=== PATIENT | female | born 1965 | race Caucasian/White ===

== ENCOUNTER → 2017-05-18 | Outpatient (CLI) | payer BC ==
[~2017-05-18] MED LIST: ASPIRIN E.C. 8181 MG PO; TOPROL XL100 MG PO; ZOLOFT 50MG50 MG PO
== END ==
LOC: MC.RAD 13:17
DX: Z12.31 Encounter for screening mammogram for malignant neoplasm of breast (principal)

== ENCOUNTER → 2018-06-04 | Outpatient (CLI) | payer BC | LOC: MC.RAD 11:20 | DX: Z12.31 Encounter for screening mammogram for malignant neoplasm of breast (principal) ==

== ENCOUNTER → 2019-06-18 | Outpatient (CLI) | payer OTHER | LOC: MC.RAD 14:01 | DX: Z12.31 Encounter for screening mammogram for malignant neoplasm of breast (principal) ==

== ENCOUNTER → 2020-06-23 | Outpatient (CLI) | payer OTHER | LOC: MC.RAD 11:45 | DX: Z12.31 Encounter for screening mammogram for malignant neoplasm of breast (principal) ==

== ENCOUNTER → 2021-08-03 | Outpatient (CLI) | payer OTHER | LOC: MC.RAD 15:01 | DX: Z12.31 Encounter for screening mammogram for malignant neoplasm of breast (principal) ==

== ENCOUNTER 2022-01-18 08:17 | Day surgery (SDC) | payer OTHER ==
[2022-01-18] VITALS (81 sets, daily range): BP systolic 117–169; BP diastolic 54–85; PULSE 66–85; TEMP 96.7–98.7; O2SAT 93–100
[~2022-01-18] VITALS: Ht 160 cm; Wt 111.3 kg
[2022-01-18] MEDS ORDERED: ZESTRIL40 MG PO (08:39)
[2022-01-18] MEDS ORDERED: TOPROL XL 50MG50 MG PO (08:41)
[2022-01-18 09:05] LABS: HEMATOCRIT 43.5 % (37.0-47.0); HEMOGLOBIN 14.3 g/dl (12.5-16.0); MEAN CELL VOLUME 89 fl (80.0-100.0); MEAN CORPUSCULAR HEMOGLOBIN 29 pg (27-31); MEAN CORPUSCULAR HGB CONC 33 g/dl (33.0-37.0); MEAN PLATELET VOLUME 10.2 fl (7.4-10.4); PLATELET COUNT 224 K/mm3 (130-400); RED BLOOD COUNT 4.89 M/mm3 (4.10-5.30); REDCELL DISTRIBUTION WIDTH-CV 12.8 % (11.5-14.5)
[2022-01-18 09:14] LABS: PARTIAL THROMBOPLASTIN TIME 24.9 SECONDS (26.0-37.0)
[2022-01-18 09:18] LABS: CALCIUM 9.3 mg/dL (8.4-10.2); CREATININE, serum 0.88 mg/dL (0.57-1.11); POTASSIUM 4.9 mmol/L (3.5-4.5)
--- NOTE | 2022-01-18 12:05 | NUR ---
PATIENT ALERT AND ORIENTED.NO REPORTS OF CHEST PAIN.FAMILY IN ROOM. PATIENT VERBALIZES UNDERSTANDING PROCEDURE. SEE MERGE FOR CATH DETAILS MONITORING AND MEDICATION ADMINISTRATION
--- NOTE | 2022-01-18 12:29 | NUR ---
PT arrived on medical bed to ICU05. PT alert and orientated to room. VSS. all questions answered. Intake assessment complete.
--- NOTE | 2022-01-18 17:40 | NUR ---
ASSUMED CARE OF PATIENT AT 1645. TR BAND REMOVED DURING BEDSIDE SHIFT REPORT. NO COMPLAINTS OF PAIN. RADIAL SITE SOFT, PULSES PALPABLE, NO BLEEDING OR HEMATOMA. PATIENT EATING AND TOLERATING FOOD WELL. VITALS STABLE. FLUIDS RUNNING @100MLS/HR. NO SIGNFICANT EVENTS UNDER MY CARE.
--- NOTE | 2022-01-18 21:36 | NUR ---
CONTINUING TO MONITOR PATIENT R RADIAL INCISIONAL SITE POST CATH NO S/S OF HEMATOMA NOTED AT THIS TIME. PLACED SPLINT TO LIMIT ROM TO ASSIST WITH POST OP CARE PATIENT REQUESTING WHILE SLEEPING. WILL CONTINUE TO MONITOR FOR ANY CHANGES PATIENT REMAINS SINUS ON TELE.
[2022-01-19 00:13] VITALS: BP 117/54; PULSE 76; TEMP 98.1
--- NOTE | 2022-01-19 00:13 | NUR ---
NO S/S OF HEMATOMA NOTED SPLINT IN PLACE WHILE PATIENT IS SLEEPING. NO PAIN NOTED SENSATION PRESENT CAP REFILL 2SEC WILL CONTINUE TO MONITOR.
[2022-01-19 00:29] VITALS: BP 139/67; PULSE 79; TEMP 98.3
[2022-01-19 04:20] VITALS: BP 146/76; PULSE 74; TEMP 97.8
[2022-01-19 05:36] VITALS: BP 146/76; PULSE 74; TEMP 97.8
--- NOTE | 2022-01-19 05:37 | NUR ---
NO S/S OF HEMATOMA NOTED TO R RADIAL AREA PATIENT DOING WELL THROUGHOUT THE NIGHT NO C/O PAIN OR DISCOMFORT POSSIBLE DISCHARGE THIS MORNING. WILL CONTINUE TO MONITOR.
[2022-01-19 06:17] LABS: BASO % 0.5 % (0.0-2.0); EOS # 0.2 K/mm3 (0.0-0.7); EOS % 2.7 % (0.0-4.0); GRAN # 4.2 K/mm3 (1.4-6.5); GRAN % 63.4 % (42.2-75.2); HEMATOCRIT 38.7 % (37.0-47.0); HEMOGLOBIN 13.1 g/dl (12.5-16.0); LYMPH # 1.6 K/mm3 (1.2-3.4); LYMPH % 24.4 % (20.0-51.0); MEAN CELL VOLUME 88 fl (80.0-100.0); MEAN CORPUSCULAR HEMOGLOBIN 30 pg (27-31); MEAN CORPUSCULAR HGB CONC 34 g/dl (33.0-37.0); MEAN PLATELET VOLUME 10.2 fl (7.4-10.4); MONO # 0.6 K/mm3 (0.1-0.6); MONO % 8.5 % (1.7-9.3); PLATELET COUNT 206 K/mm3 (130-400); RED BLOOD COUNT 4.42 M/mm3 (4.10-5.30); REDCELL DISTRIBUTION WIDTH-CV 12.6 % (11.5-14.5)
[2022-01-19 06:34] LABS: CALCIUM 8.9 mg/dL (8.4-10.2); CREATININE, serum 0.79 mg/dL (0.57-1.11); POTASSIUM 3.9 mmol/L (3.5-4.5)
[2022-01-19 07:15] VITALS: BP 144/72; PULSE 71; TEMP 98
--- NOTE | 2022-01-19 08:53 | NUR ---
Patient laying in bed upon entering the room. Denies any chest pain, SOB, or dizziness. Radial site is soft w/ no signs of hematoma. Patient denies any pain at the site. Morning medications administered w/ the exception of the nitro patch, patient states it gives her a headache.
--- NOTE | 2022-01-19 10:26 | NUR ---
Staff reviewed Phase 1 cardiac rehab education with patient- cath site care, monitoring for infection and when to call MD. Staff also reviewed CVD risk factors and ways to modify. Patient verbalized understanding. Referral sent to [facility] with patient's permission.
--- NOTE | 2022-01-19 11:10 | NUR ---
RAJ met with the patient to discuss discharge plan. The patient lives in [place] with her , Semaj (ph#[phone]). She reports independence with ADLs and does not have any DME. The patient's PCP is Dr. Kennedy Lopez and she receives her medications from [facility]. The patient does not have a DPOA-HC, but she was interested in obtaining a form. RAJ provided. The patient plans on returning home with her upon discharge. No additional needs at this time. *Discharge plan: home with *
[2022-01-19 11:24] VITALS: BP 141/64; PULSE 74; TEMP 97.9
[2022-01-19] MEDS ORDERED: BRILINTA90 MG PO (12:01)
[2022-01-19] MEDS ORDERED: LIPITOR 80MG80 MG PO (12:01)
[2022-01-19] MEDS ORDERED: COREG 25MG25 MG/TAB PO (12:02)
[2022-01-19] MEDS ORDERED: NORVASC 5MG5 MG/TAB PO (12:02)
[2022-01-19] MEDS ORDERED: EPA FISH OIL1 SGL PO (12:04)
--- NOTE | 2022-01-19 13:11 | NUR ---
Discharge education and instructions discussed w/ patient. Patient verbalized understanding and signed appropriate paperwork. IV and telemetry discontinued by this RN. Patient denies any concerns at the time of discharge.
--- NOTE | 2022-01-19 13:27 | NUR ---
First visit from the social sciences professor. No needs right now.
== END 2022-01-19 13:15 | disposition home or self-care (01) ==
LOC: COL.CAR 08:17 → MEDICAL 14:54 → COL.CAR 01-19 13:15
PROVIDERS: Internal Medicine Cardiovascular Disease
DX: I25.10 Atherosclerotic heart disease of native coronary artery without angina pectoris (principal); I10 Essential (primary) hypertension; R07.89 Other chest pain; R94.39 Abnormal result of other cardiovascular function study; Z79.82 Long term (current) use of aspirin; Z79.899 Other long term (current) drug therapy
CPT/HCPCS: OP; C1769; C1874; C1887; C9600; J0583; J1644; J2250; J3010